=== PATIENT | female | born 1955 | race Caucasian/White ===

== ENCOUNTER 2017-03-05 13:37 | Inpatient (IN) ==
--- NOTE | 2017-03-04 18:01 | Discharge Summary ---
<Hilda Lara - Last Filed: 03/04/17 17:58> Date of Encounter: 03/04/17 - Discharge Diagnosis (1) Arthritis of right knee Priority: Primary Status: Chronic (2) HTN (hypertension) Priority: Secondary Status: Chronic Qualifiers: Hypertension type: unspecified Qualified Code(s): I10 - Essential (primary ) hypertension (3) Obesity Priority: Secondary Status: Chronic Qualifiers: Obesity type: unspecified obesity type Obesity classification: unspecified obesity classification Serious obesity comorbidity presence: unspecified whether serious comorbidity present Qualified Code(s): E66.9 - Obesity, unspecified; Z68.37 - Body mass index (BMI) 37.0-37.9, adult; Z68.37 - Body mass index (BMI) 37.0-37.9, adult - Discharge Medications Home Medications: Aspirin Enteric Coated [Aspirin EC] 325 mg PO DAILY 21 Days #21 tablet. [Rx] OxyCODONE Immed Rel [Roxicodone 5 MG] 5 mg PO Q6HR PRN 7 Days #28 tablet [Rx] Lisinopril [Zestril] 10 mg PO DAILY 03/05/17 [History] hydroCHLOROthiazide [Hydrochlorothiazide] 25 mg PO DAILY 03/05/17 [History] Allergies/Adverse Reactions: 3 Allergy/AdvReac Type Severity Reaction Status Date / Time No Known Allergies Allergy Verified 03/05/17 14:04 Primary care physician: PCP NONE - Patient Status Disposition: Home, Self-Care Condition: Good - Discharge Instructions Follow Up With: NONE,PCP [Primary Care Provider] - - Hospital Course Hospital course: Ms. Echeverria is a 61 year old female - Time Spent with Patient Total time spent providing and/or coordinating discharge services: <Vick Calderon - Last Filed: 03/06/17 06:22> Date of Encounter: 03/06/17 Time of Encounter: 06:22 - Discharge Diagnosis (1) Arthritis of right knee Priority: Primary Status: Chronic (2) HTN (hypertension) Priority: Secondary Status: Chronic Qualifiers: Hypertension type: unspecified Qualified Code(s): I10 - Essential (primary ) hypertension (3) Obesity Priority: Secondary Status: Chronic Qualifiers: Obesity type: unspecified obesity type Obesity classification: adult class 2 (BMI 35 - 39.9) Serious obesity comorbidity presence: unspecified whether serious comorbidity present Body mass index: BMI 37.0-37.9 Qualified Code(s) : E66.9 - Obesity, unspecified; Z68.37 - Body mass index (BMI) 37.0-37.9, adult ; Z68.37 - Body mass index (BMI) 37.0-37.9, adult (4) Status post total right knee replacement Priority: Primary Status: Acute Primary care physician: PCP NONE - Patient Status Functional capacity at discharge: uses cane/walker Overall status at discharge: patient is progressing back to baseline - Hospital Course Hospital course: Ms. Echeverria is a 61 year old female Status post right total knee replacement The patient had an uneventful postoperative course. They received antibiotics and physical therapy and were discharged in stable condition. There will follow -up in the office in 2 weeks. - Time Spent with Patient Total time spent providing and/or coordinating discharge services:
--- NOTE | 2017-03-04 18:03 | Physician Discharge Referral ---
Home Health/Hosp Referral Info Transfer to: Home Health Attending Provider: Dr. Vick Calderon - Diagnosis (1) Arthritis of right knee Priority: Primary Status: Chronic (2) HTN (hypertension) Priority: Secondary Status: Chronic (3) Obesity Priority: Secondary Status: Chronic (4) Status post total right knee replacement Priority: Primary Status: Acute - Respiratory Orders Smoking Cessation: Smoking cessation has been advised. For more information, call the [place] Tobacco Quit Line at 7-061-NDMY-NOW. - Dressing/Wound Care Site: right knee Type of Dressing/Treatments w/Frequency: Opsite placed. Keep dressing intact until first follow up appointment. If > 50% saturated, notify office, remove dressing and place appropriate dressing back in place. Dressing is water resistant, not water-proof. OK to shower, but do not get dressing wet. - Diet/Nutrition Diet/Nutrition Orders: Regular - Activity Activity Orders: Up ad cody, Ambulate, Chair, Walker Activity: List: Total Knee replacement Precautions x 6 weeks Apply cold therapy wrap 3-6x/day for 20 minutes at a time. Encourage ambulation throughout the day and incentive spirometer 10x/hour. Elevate affected extremity above heart as tolerated. Brace: Wear knee immobilizer at night x 2 weeks. - Services Needed Following services are medically necessary services: Nursing, Home Health Aide, Physical Therapy, Occupational Therapy - Transfer Medications Prescriptions: OxyCODONE Immed Rel [Roxicodone 5 MG] 5 mg PO Q6HR PRN 7 Days #28 tablet PRN Reason: Pain Aspirin Enteric Coated [Aspirin EC] 325 mg PO DAILY 21 Days #21 tablet. Home Medications: Etodolac 09/22/16 [History] Tramadol HCl [Ultram] 50 mg PO Q6HR PRN #16 tab 09/22/16 [Rx] Aspirin Enteric Coated [Aspirin EC] 325 mg PO DAILY 21 Days #21 tablet. [Rx] OxyCODONE Immed Rel [Roxicodone 5 MG] 5 mg PO Q6HR PRN 7 Days #28 tablet [Rx] Allergies/Adverse Reactions: 3 Allergy/AdvReac Type Severity Reaction Status Date / Time No Known Allergies Allergy Verified 09/22/16 17:11 Certification: Further, I certify that my clinical findings support that this patient is homebound (i.e. absences from home require considerable and taxing effort and are for medical reasons or jewish services or infrequently or short duration when for other reasons) because: Homebound Reason: Post-surgery restriction and or conditions limit ability to leave home Attestation: My signature below is to certify that this patient is under my care and that I, or nurse practitioner, or a physician assistant portfolio manager working with me, has a face-to- face encounter with this patient.
[2017-03-05] MEDS ORDERED: CeFAZolin Syr 2,000MG/20 ML 2,000 MG/20 ML SYRINGE IVPB ONE (13:58)
[2017-03-05] MEDS ORDERED: Lidocaine -MPF 1% 2 ML VIAL ID ONE (13:58)
[2017-03-05] MEDS ORDERED: Ringers Solution, Lactated 1,000 ML IVC SCH ×2 (14:00→18:35)
--- NOTE | 2017-03-05 14:15 | History & Physical Report ---
Date of Encounter: 03/05/17 Time of Encounter: 14:15 24 Hour HP Update - Instructions Instructions: If the History and Physical is less than 30 days old and was completed prior to A.M. admission and or procedure and has NOT been updated on calendar day of procedure please complete this update prior to performing procedure. - Update Patient reports changes in Medical Condition: No Changes in examination, assessment, or condition: No Changes in Medication: No Preop tests/diagnostics Reviewed: Yes Surgery Remains Indicated: Yes Consent for Planned Operative Procedure(s) Verified: Yes - Pre-Operative Checklist Preoperative Checklist Indicated: No Prophylactic Antibiotic Ordered: Yes Is VTE Prophylaxis Indicated?: Yes
[2017-03-05] MEDS ORDERED: Famotidine 20 MG/2 ML VIAL IVP ONE (14:22)
[2017-03-05] MEDS ORDERED: Gabapentin 300 MG CAPSULE PO ONE (14:23)
--- NOTE | 2017-03-05 14:36 | Anesthesia Evaluation PreOp ---
Date of Encounter: 03/05/17 Time of Encounter: 14:30 - Past History Planned Operation: Rt TKA Cardiac History: HTN Pulmonary History: Denies Any Significant HX GANDY DANCER History: Denies Any Significant HX Other Medical History: Denies Any Significant HX Anesthesia History: No Prior Anesthetic Complications Alcohol Use: none Medications and Allergies Aspirin Enteric Coated [Aspirin EC] 325 mg PO DAILY 21 Days #21 tablet. [Rx] OxyCODONE Immed Rel [Roxicodone 5 MG] 5 mg PO Q6HR PRN 7 Days #28 tablet [Rx] Lisinopril [Zestril] 10 mg PO DAILY 03/05/17 [History] hydroCHLOROthiazide [Hydrochlorothiazide] 25 mg PO DAILY 03/05/17 [History] 3 Allergy/AdvReac Type Severity Reaction Status Date / Time No Known Allergies Allergy Verified 03/05/17 14:04 - Meds/Allergy Pre-op Review Medications Reviewed: Yes Allergies Reviewed: Yes Beta Blockers on Current Med List: No Anesthesia Results - Labs Hgb 12.7 Hct 37.6 Plt 271 - Imaging EKG: report reviewed (SR) Anesthesia Exam O2 Sat Height 1.68 m Weight 106.594 kg O2 Sat by Pulse Oximetry 100 Vital Signs Temp Pulse Resp BP Pulse Ox 97.8 F 69 20 128/78 100 03/05/17 14:18 03/05/17 14:18 03/05/17 14:18 03/05/17 14:18 03/05/17 14:18 Height: 5'6 Weight: 237 lbs NPO (# of Hours): MN Pain Scale: 0 - HEENT Pupil (Motor): Pupils equal, EOMI Mallampati: II Teeth: Normal Oral Opening: Greater than 3 - GANDY DANCER LOC: Oriented GANDY DANCER Motor: Normal RUE, Normal LUE, Normal RLE, Normal LLE, Normal Face GANDY DANCER Sensory: Normal: RUE, LUE, RLE, LLE, Face - Cardiac Rhythm: Regular Murmur: None JVD: No Carotid Bruit: No - Pulmonary Breath Sounds: bilateral Clear Respiratory Effort: Symmetrical Anesthesia Assess/Plan ASA Score: 2 Modified Axel Scale for Level of Consciousness: Cooperative, oriented, and tranquil Anesthetic Plan: General, Regional Monitoring Plan: Standard Monitors Recovery Plan: PACU (Discussed GA and RA, agrees to proceed)
[2017-03-05] MEDS ORDERED: *HR* HYDROmorphone (PF) 1 MG/ML SYRINGE IVP PRN ×2 (14:59→18:35)
[2017-03-05] MEDS ORDERED: *HR* Promethazine 25 MG/ML VIAL IVP PRN (15:00)
[2017-03-05] MEDS ORDERED: *HR* Succinylcholine 200 MG/10 ML VIAL IVP ONE (15:09)
[2017-03-05] MEDS ORDERED: Dexamethasone 4 MG/ML VIAL ONE (15:09)
[2017-03-05] MEDS ORDERED: *HR* Propofol 200 MG/20 ML VIAL IVP ONE (15:09)
[2017-03-05] MEDS ORDERED: *HR* FentaNYL (PF) 100 MCG/2 ML VIAL ONE (15:09)
[2017-03-05] MEDS ORDERED: Lidocaine -MPF 2% 2 ML VIAL ONE (15:09)
[2017-03-05] MEDS ORDERED: Ondansetron 4 MG/2 ML VIAL ONE (15:09)
[2017-03-05] MEDS ORDERED: Lidocaine -MPF 4% 5 ML AMPUL ONE (15:09)
[2017-03-05] MEDS ORDERED: *HR* Midazolam HCl 2 MG/2 ML VIAL ONE (15:09)
[2017-03-05] MEDS ORDERED: Ketorolac 30 MG/ML VIAL ONE (15:10)
[2017-03-05] MEDS ORDERED: ROPIVACAINE HCL/PF 0.5% 30 ML VIAL ONE (15:23)
[2017-03-05] MEDS ORDERED: Bupivacaine/Clonidine Syringe 1 EACH SYRINGE ONE (15:24)
--- NOTE | 2017-03-05 15:44 | Anesthesia Procedures ---
Date of Encounter: 03/05/17 Time of Encounter: 15:41 Procedures: Anesthesia - Nerve Block Procedure Date: 03/05/17 Time: 15:42 Allergies/Adv Reactions: No Known Allergies Allergy (Verified 03/05/17 14:04) Pre-op Diagnosis: right knee oa Surgical Procedure: right tka Checklist: Correct Patient Identifier, Correct procedure, History checked Correct side: Right Blood Thinner: No Monitor Applied: EKG, BP, Pulse Oximetry Supplemental Oxygen via Nasal Cannula (L/min): 2 Sedation: Versed (mg): 2 Sedation: Fentanyl (mcg): 100 Pre-op Neuro Deficits: No Block Type: Femoral (30cc 0.5% ropivicaine), Other (iPack 20CC 0.25% bupivicaine ) Catheter placed: No Sterile Technique: Yes Ultrasound used: Yes Anatomy identified: Yes Visual spread of Local: Yes Neuro Stimulation: No Blood on Needle Aspiration: No Smooth Injection of Local: Yes Pain with Injection of Local: No Prep: Chlorhexadine Needle: 22 x 50 mm Stimuplex (femoral), 21 x 100 mm Stimuplex (iPACK) Local: 0.25% Bupivicaine w/Clonidine 20 mcg/cc, Ropivacaine Volume (cc): 50 Number of Attempts: 1 Complications: None/effective block Vitals: See nurses documentation
[2017-03-05] MEDS ORDERED: Ethanol\\Acetic Acid\\Na Ace\\Ben 1,000 ML IRRIG.SOLN IR ONE (15:52)
[2017-03-05] MEDS ORDERED: *HR* Morphine 10 MG/ML VIAL ONE (16:18)
--- NOTE | 2017-03-05 16:52 | Orthopedic Operative Note ---
Date of procedure: 03/05/17 Pre-op diagnosis: Right knee arthritis Post-op diagnosis: same Procedure: Procedure: Right Total knee replacement Estimated blood loss: 200 cc Hardware: Metal and polyethylene replacement. Arthrex Femur: 5 Tibia: 4 PS insert:13 Patella:30 Exam Under anesthesia: Full flexion and full extension no instability Procedural Notes: Grade 4 arthritic changes medial compartment patellofemoral joint. Operative procedure: The patient was brought to the operating room and placed on the operating room table. After general anesthesia was administered the operative knee was examined. Findings were noted in the exam under anesthesia. The operative extremity was prepped and draped in sterile surgical fashion. The patient received IV antibiotics prior to skin incision. A standard midline incision was made centered over the patella. The incision was made through the skin and subcutaneous tissue. A medial parapatellar tendon approach was performed. Care was taken to preserve tissue along the medial aspect of the patella. And to protect the patella tendon. The deep MCL was released off the medial tibia. The infra patella fat pad was excised. Knee was brought into flexion. Patient noted to have grade 4 arthritic changes medial compartment and patellofemoral joint. The entry hole was made for the intramedullary femoral guide. The guide was seated in 6 degrees of valgus. Anterior cut was made followed by the distal cut. The ACL the PCL the medial and the lateral menisci were excised. The tibia was subluxed forward. The entry hole was made for the intramedullary tibial guide. Guide was seated to resect 2 mm off the more abnormal side. The knee was brought into flexion the distal femur was sized to a 5. The femoral guide was seated, the anterior cut was made followed by the posterior condylar cut, followed by the chamfer cuts. The finishing guide was seated the box cut was made and the lug holes were drilled. The tibia was sized to a 4, the tibial tray was seated and prepared with the large drill followed by the fin cutter. Trial reduction revealed full extension no varus valgus instability with the appropriate 13 PS Radha. The patella was everted and cut was made at the level of the insertion of the quadriceps and patella tendon. The patella was sized to 30 the guide was seated and the lug holes are drilled. Trial reduction revealed excellent patella tracking. All trial components were removed all bony surfaces were irrigated. The tibia was cemented first followed by the femur. The 13 PS Radha was seated and the knee was brought into full extension. The patella was cemented and held in place with the patellar holding clamp. After the cement had hardened, the knee sat for 2 minutes with a Betadine saline solution. The knee was then irrigated out with 2 L of pulse irrigation. The knee was closed by the PA. The extensor mechanism was closed with #2 FiberWire suture and #2 PDS suture. The subcutaneous tissue was then irrigated and closed deep with #1 PDS suture superficially with 0 PDS suture and skin was closed with skin zip tie. The patient was then placed in a sterile dressing and a postoperative brace extubated and transferred to recovery room in stable condition. Anesthesia: BETY Surgeon: Vick Calderon Condition: stable Disposition: PACU
[2017-03-05] MEDS ORDERED: *HR* Enoxaparin 30 MG/0.3 ML SYRINGE SQ SCH (18:00)
--- NOTE | 2017-03-05 18:01 | Anesthesia Evaluation Post Op ---
Date of Encounter: 03/05/17 Time of Encounter: 18:01 - Vital Signs Vital Signs: Vital Signs/O2 Sat, Most Current Temp Pulse Resp BP Pulse Ox 98.5 F 68 16 119/67 97 03/05/17 17:27 03/05/17 17:47 03/05/17 17:47 03/05/17 17:47 03/05/17 17:47 - Lungs Lungs: Clear Ascult./Percussion - Airway Airway: Non-obstructed - Cardiovascular Regular Rate - Mental Status Mental Status: Asleep with brisk response to light stimulation - Pain Pain Scale: 0 Pain Scale used: Numeric (1 - 10) - Nausea Vomiting Nausea Vomiting: Not Present - Hydration Hydration: NPO, Has not voided - Discharge PostOp Status: Transfer Patient to floor
[2017-03-05 18:02] LABS: Hematocrit 38.5 % (35.3-44.9); Hemoglobin 12.7 g/dL (11.5-15.4)
[2017-03-05] MEDS ORDERED: Ondansetron 4 MG/2 ML VIAL IVP PRN (18:35)
[2017-03-05] MEDS ORDERED: MOM Conc 10 ML UD.LIQ PO PRN (18:35)
[2017-03-05] MEDS ORDERED: Temazepam 15 MG CAPSULE PO PRN (18:35)
[2017-03-05] MEDS ORDERED: Sennosides 8.6 MG TABLET PO PRN (18:35)
[2017-03-05] MEDS ORDERED: Naloxone 0.4 MG/ML INJ IVP PRN (18:35)
[2017-03-05] MEDS: *HR* OxyCODONE Immed Rel 5 MG TABLET PO PRN (19:51)
[2017-03-05] MEDS ORDERED: Acetaminophen IV 1,000 MG/100 ML INFUS..BTL IVPB PRN (23:04)
[2017-03-05] MEDS: Ketorolac 15 MG/ML VIAL IVP PRN (23:20)
[2017-03-05] MEDS: CeFAZolin Premix DUPLEX 2,000 MG/50 ML BAG IVPB SCH (23:20)
[2017-03-06] MEDS: *HR* OxyCODONE Immed Rel 5 MG TABLET PO PRN ×3 (00:25→10:32)
[2017-03-06] MEDS ORDERED: *HR* Enoxaparin 30 MG/0.3 ML SYRINGE SQ SCH (06:00)
--- NOTE | 2017-03-06 06:23 | Orthopedics Progress Note ---
Date of Encounter: 03/06/17 Time of Encounter: 06:23 - Assessment and Plan (1) Arthritis of right knee Current Visit: No Status: Chronic (2) HTN (hypertension) Current Visit: No Status: Chronic Qualifiers: Hypertension type: unspecified Qualified Code(s): I10 - Essential (primary ) hypertension (3) Obesity Current Visit: No Status: Chronic Qualifiers: Obesity type: unspecified obesity type Obesity classification: adult class 2 (BMI 35 - 39.9) Serious obesity comorbidity presence: unspecified whether serious comorbidity present Body mass index: BMI 37.0-37.9 Qualified Code(s) : E66.9 - Obesity, unspecified; Z68.37 - Body mass index (BMI) 37.0-37.9, adult ; Z68.37 - Body mass index (BMI) 37.0-37.9, adult (4) Status post total right knee replacement Current Visit: No Status: Acute Subjective Interval history: Patient was seen this morning doing well without complaints. Afebrile vital signs stable. Operative extremity: Neurovascularly intact Dressing clean dry and intact Calves nontender Assessment and plan: Continue with postoperative care Hematocrit 38 discharged today Objective Vital signs: Vital Signs Temp Pulse Resp BP Pulse Ox 03/06/17 04:26 97.8 F 66 17 99/66 99 03/05/17 23:10 98.5 F 59 16 102/66 98 03/05/17 21:05 98 F 66 16 99/62 97 03/05/17 20:40 97.9 F 56 14 92/53 97 03/05/17 20:14 98.4 F 64 16 94/65 98 03/05/17 19:55 98 03/05/17 19:39 97.8 F 67 17 103/70 96 03/05/17 19:36 97.8 F 64 16 103/70 98 03/05/17 18:40 97.7 F 66 16 95/59 98 03/05/17 18:17 97.7 F 63 16 106/65 97 03/05/17 18:07 64 16 103/63 97 03/05/17 17:57 97.7 F 69 16 115/64 97 03/05/17 17:47 68 16 119/67 97 03/05/17 17:37 66 16 124/63 99 03/05/17 17:27 98.5 F 79 16 117/97 100 03/05/17 15:55 68 13 115/66 99 03/05/17 15:40 68 14 120/63 98 03/05/17 15:15 70 16 135/78 100 03/05/17 14:18 97.8 F 69 20 128/78 100 Intake and Output 03/05/17 03/05/17 03/06/17 15:59 23:59 07:59 Intake Total 470 / 470 425 / 425 Output Total 250 / 250 350 / 350 Balance 220 / 220 75 / 75 Intake: IV Fluids 50 / 50 Ancef Premix DUPLEX 2,000 mg In 50 / 50 50 ml @ 100 mls/hr IVPB Q8H FOR[facility], 1928–1983 Rx#:[id number] Oral 420 / 420 425 / 425 Output: Urine 250 / 250 350 / 350 Other: Weight 106.594 kg - Labs CBC & BMP: 03/05/17 17:44 - VTE Documentation of Mechanical Device: Venous foot pump, device Consult Discharge Plan - Plan Referrals: NONE,PCP [Primary Care Provider] -
[2017-03-06 06:59] VITALS: BP 96/63
[2017-03-06 07:26] LABS: Hematocrit 34.7 % (35.3-44.9); Hemoglobin 11.4 g/dL (11.5-15.4)
[2017-03-06 07:36] LABS: BUN/Creatinine Ratio 27 (6-26); Blood Urea Nitrogen 23 mg/dL (7-20); Calcium 8.9 mg/dL (8.6-10.8); Carbon Dioxide 26 mEq/L (19-29); Chloride 101 mEq/L (98-109); Glucose 141 mg/dL (70-99); Osmolality,Calculated 286 (280-300); Potassium 5.1 mEq/L (3.5-4.5); Sodium 135 mEq/L (136-145); eGFR For African Americans > 60 (> 60); eGFR For Non-African Americans > 60 (> 60)
[2017-03-06] MEDS: CeFAZolin Premix DUPLEX 2,000 MG/50 ML BAG IVPB SCH (08:25)
[2017-03-06] MEDS ORDERED: hydroCHLOROthiazide 25 MG TABLET PO SCH (09:00)
[2017-03-06] MEDS: Ketorolac 15 MG/ML VIAL IVP PRN (13:49)
== END 2017-03-06 15:50 | disposition home or self-care (01) | DRG 470 ==
LOC: SAMDAY 13:37 → 3NENU 18:16
PROVIDERS: ADMIT Orthopaedic Surgery; ATTEND Orthopaedic Surgery